=== PATIENT | male | born 1985 | race American Indian/Alaskan Native ===

== ENCOUNTER 2018-05-21 10:18 | Emergency (ER) | payer MEDICAID ==
[2018-05-21] MEDS ORDERED: KEPPRA PO ONE (11:00)
--- NOTE | 2018-05-21 11:00 | Emergency Department Report ---
ED General Adult HPI - General Chief complaint: Medical Clearance Stated complaint: MEDCATION REFILL (SZ) Time Seen by Provider: 05/21/18 10:52 Source: patient, EMS Mode of arrival: Ambulatory Limitations: No Limitations - History of Present Illness Initial comments: Mr. Wolff is a 32 yo male with hx of bipolar disorder, ADD, schizophrenia, depresion and TBI who presents with request for refill of seizure medications. He normally takes Keppra and Depakote both medications twice a day. He desires first dose in the ED. He has been without medications for 3 days. No other complaints. - Related Data Previous Rx's Medication Instructions Recorded Last Taken Type FLUoxetine HCL [PROzac] 40 mg PO QDAY #30 capsule 03/14/18 Unknown Rx Divalproex Sodium [Depakote] 500 mg PO BID #60 tablet. 05/21/18 Unknown Rx levETIRAcetam [Keppra] 500 mg PO BID #60 tablet 05/21/18 Unknown Rx Allergies Allergy/AdvReac Type Severity Reaction Status Date / Time No Known Allergies Allergy Verified 05/21/18 10:23 ED Review of Systems ROS: Stated complaint: MEDCATION REFILL (SZ) Other details as noted in HPI Constitutional: denies: fever, malaise Neurological: denies: headache ED Past Medical Hx - Past Medical History Previous Medical History?: Yes Hx Psychiatric Treatment: Yes (bipolar, ADD,schizophrenia,depression) Additional medical history: TBI with surgery,feeding tube - Surgical History Additional Surgical History: brain surgery - Social History Smoking Status: Current Every Day Smoker Substance Use Type: Alcohol, Marijuana Other Social History: Recently moved to a new personal residential. - Medications Home Medications: Home Medications Medication Instructions Recorded Confirmed Last Taken Type FLUoxetine HCL [PROzac] 40 mg PO QDAY #30 capsule 03/14/18 Unknown Rx Divalproex Sodium [Depakote] 500 mg PO BID #60 tablet. 05/21/18 Unknown Rx levETIRAcetam [Keppra] 500 mg PO BID #60 tablet 05/21/18 Unknown Rx ED Physical Exam - General Limitations: No Limitations General appearance: alert, in no apparent distress - Head Head exam: Present: atraumatic, normocephalic - Eye Eye exam: Present: normal appearance - ENT ENT exam: Present: mucous membranes moist - Neck Neck exam: Present: normal inspection, full ROM - Respiratory Respiratory exam: Absent: respiratory distress - Neurological Exam Neurological exam: Present: alert, oriented X3 - Psychiatric Psychiatric exam: Present: normal affect, normal mood - Skin Skin exam: Present: warm, dry, intact, normal color ED Medical Decision Making - Medical Decision Making Mr. Wolff is a 32-year-old male with history of seizure disorder. Given first dose of Keppra and Depakote in the ED. Also prescribed Depakote and Keppra. Critical care attestation.: If time is entered above; I have spent that time in minutes in the direct care of this critically ill patient, excluding procedure time. ED Disposition Clinical Impression: Medication refill, Seizure disorder Disposition: DC- TO HOME OR SELFCARE Is pt being admited?: No Does the pt Need Aspirin: No Condition: Stable Prescriptions: Divalproex Sodium [Depakote] 500 mg PO BID #60 tablet. levETIRAcetam [Keppra] 500 mg PO BID #60 tablet Referrals: ELLEN MCKEON MD [Primary Care Provider] - 3-5 Days
[2018-05-21 11:22] VITALS: BP 142/87
== END 2018-05-21 11:25 | disposition home or self-care (01) ==
LOC: ED 10:18
DX: G40.909 Epilepsy, unspecified, not intractable, without status epilepticus (principal); Z76.0 Encounter for issue of repeat prescription; F31.9 Bipolar disorder, unspecified; F20.9 Schizophrenia, unspecified; F17.200 Nicotine dependence, unspecified, uncomplicated
CPT/HCPCS: 99283